=== PATIENT | female | born 1960 | race Caucasian/White ===

== ENCOUNTER 2021-07-07 12:31 | Emergency (ER) | payer MEDICAID, SELFPAY ==
[2021-07-07 13:20] VITALS: BP 171/56; PULSE 62; RESP 16; TEMP 36.7; O2SAT 100; BMI 33.9
--- NOTE | 2021-07-07 13:50 | HMH.EDUTC ---
[facility] [place] Clinical Impression: Sinusitis Qualifiers: Sinusitis location: unspecified location Chronicity: acute Recurrence: non-recurrent Qualified Code(s): J01.90 - Acute sinusitis, unspecified Disposition: Home, Self-Care Condition on Discharge: Good Instructions: Sinusitis, DI for Sinusitis Additional Instructions: Drink plenty of fluids. Take tylenol or ibuprofen for pain or fever. Take the medications as directed. Follow up with your regular doctor. GO TO THE ER FOR ANY WORSENING SYMPTOMS Quarantine until you know the results of your covid-19 test. If it is positive, the health department should call you and give you further instructions about your length of Quarantine and other things. Notify your school or workplace of your results and follow their instructions regarding return to work/school. Follow up with your primary care physician regarding your elevated blood pressure. Prescriptions: predniSONE [Prednisone 20mg Tab] 20 mg PO BID 4 Days #8 tab Transmission Status: Received by [employer] #[id number] Benzonatate [Tessalon Perle 100mg Cap] 100 mg PO TIDP PRN #30 cap PRN Reason: Cough Transmission Status: Received by [employer] #[id number] Azithromycin [Z-Tay 250mg Tab*] 250 mg PO UD DOSE PK #6 tab Transmission Status: Received by [employer] #[id number] Referrals: Austen Fournier [Primary Care Provider] - Forms: Work/School Release Time of Disposition: 13:55 Medical Decision Making - Medical Records Medical records reviewed: No: I reviewed the patient's medical records. - Shayne Inquiry Pt receiving controlled substance: No Vital Signs: 07/07/21 13:20 07/07/21 13:58 Temperature 98.0 F 98.3 F Temperature Source Oral Oral Pulse Rate 60 Pulse Rate [Right] 62 Respiratory Rate 16 16 Blood Pressure 164/70 H Blood Pressure [Right Arm] 171/56 H Blood Pressure Mean [Right Arm] 94 Blood Pressure Source Automatic Cuff Blood Pressure Source [Right Arm] Automatic Cuff Blood Pressure Position Sitting Blood Pressure Position [Right Arm] Sitting 02 Sat by Pulse Oximetry 100 Oxygen Delivery Method Room Air Room Air [facility] [place] - General Stated complaint: head/nasal congestion Time Seen by Provider: 07/07/21 13:50 Mode of Arrival: Ambulatory Source of Information: Patient Limitations: No Limitations Description of Symptoms (Recalled from Triage Doc. by RN): Pt thinks she has a sinus infection that started last week and has gotten worse HEENT Symptoms (Recalled from RN notes): No Resp Symptoms (Recalled from RN notes): No Skin Symptoms (Recalled from RN notes): No MS Symptoms (Recalled from RN notes): No Functional Status (Recalled from RN notes): na - History of Present Illness Provider Complaint: She states that for the past 4 days she has had sinus congestion, sinus drainage, scratchy throat and a cough. She denies any known covid-19 exposure. - Related Data Previous Rx's Medication Instructions Recorded Azithromycin [Z-Tay 250mg Tab*] 250 mg PO UD DOSE PK #6 tab 07/07/21 Benzonatate [Tessalon Perle 100mg 100 mg PO TIDP PRN #30 cap 07/07/21 Cap] predniSONE [Prednisone 20mg 20 mg PO BID 4 Days #8 tab 07/07/21 Tab] Allergies Allergy/AdvReac Type Severity Reaction Status Date / Time Penicillins Allergy Mild Verified 07/07/21 13:23 Sulfa (Sulfonamide Allergy Mild Verified 07/07/21 13:23 Antibiotics) - Worker's Comp Is this a Worker's Comp case?: No [facility] History - Hepatitis A Screen Drug use history?: No High risk sexual behaviors?: No History of sexually transmitted infection?: No Currently employed?: No Childcare worker?: No Do you have indoor plumbing?: Yes Do you have electricity?: Yes Attestation statement:: This patient has been screened for Hepatitis A risk factors. I have reviewed the patient's past medical history: Yes ROS Obtained: Yes All systems reviewed & no additional complaints - Cons
[2021-07-07 13:58] VITALS: BP 164/70; PULSE 60; RESP 16; TEMP 36.8; O2SAT 98
== END 2021-07-07 13:59 | disposition home or self-care (01) ==
PROVIDERS: Emergency Provider Nurse Practitioner Family; PCP Family Medicine
DX: J01.90 Acute sinusitis, unspecified (principal); Z20.822 Contact with and (suspected) exposure to COVID-19
CPT/HCPCS: 99202; C9803; G0463; U0003; U0005

== ENCOUNTER 2021-12-12 17:47 | Emergency (ER) | payer OTHER, SELFPAY ==
[2021-12-12 18:52] VITALS: BP 147/75; PULSE 68; RESP 16; TEMP 36.9; O2SAT 98; BMI 33.3
--- NOTE | 2021-12-12 18:56 | HMH.EDUTC ---
[facility] [place] Clinical Impression: Sinusitis Qualifiers: Sinusitis location: unspecified location Chronicity: acute Recurrence: non-recurrent Qualified Code(s): J01.90 - Acute sinusitis, unspecified Disposition: Home, Self-Care Condition on Discharge: Good Instructions: DI for Sinusitis Additional Instructions: Drink plenty of fluids. Take tylenol for pain or fever. Take the medications as directed. Follow up with your regular doctor. GO TO THE ER FOR ANY WORSENING SYMPTOMS Prescriptions: Benzonatate [Benzonatate 100mg cap] 100 mg PO TIDP PRN #30 cap PRN Reason: Cough Transmission Status: Received by [facility] #[id number] methylPREDNISolone [Medrol] 4 mg PO DIRECTED 6 Days #21 packet Transmission Status: Received by [employer] #[id number] guaiFENesin [Mucinex 600mg tablet] 1 - 2 tab PO BIDP PRN #30 tab PRN Reason: Congestion Transmission Status: Received by [facility] #[id number] Azithromycin [Z-Tay 250mg Tab*] 250 mg PO UD DOSE PK #6 tab Transmission Status: Received by [employer] #[id number] Referrals: Gilda Jorge APRN [Primary Care Provider] - Forms: Work/School Release Time of Disposition: 20:00 Medical Decision Making - Medical Records Medical records reviewed: No: I reviewed the patient's medical records. - Shayne Inquiry Pt receiving controlled substance: No Vital Signs: 12/12/21 18:52 12/12/21 20:20 Temperature 98.4 F 98.4 F Temperature Source Oral Pulse Rate 68 Pulse Rate [Left] 68 Respiratory Rate 16 16 Blood Pressure 147/75 H Blood Pressure [Right Arm] 147/75 H Blood Pressure Mean [Right Arm] 99 02 Sat by Pulse Oximetry 98 [facility] [place] - General Stated complaint: possible sinus infection Time Seen by Provider: 12/12/21 18:56 Mode of Arrival: Ambulatory Source of Information: Patient Limitations: No Limitations Description of Symptoms (Recalled from Triage Doc. by RN): pt c/o sinus pain/pressure and a dry cough. x1 wk HEENT Symptoms (Recalled from RN notes): Yes Resp Symptoms (Recalled from RN notes): Yes Skin Symptoms (Recalled from RN notes): No MS Symptoms (Recalled from RN notes): No Functional Status (Recalled from RN notes): wnl - History of Present Illness Provider Complaint: c/o sinus pressure for the past 1 week. - Related Data Previous Rx's Medication Instructions Recorded Azithromycin [Z-Tay 250mg Tab*] 250 mg PO UD DOSE PK #6 tab 07/07/21 Benzonatate [Tessalon Perle 100mg 100 mg PO TIDP PRN #30 cap 07/07/21 Cap] predniSONE [Prednisone 20mg 20 mg PO BID 4 Days #8 tab 07/07/21 Tab] Azithromycin [Z-Tay 250mg Tab*] 250 mg PO UD DOSE PK #6 tab 12/12/21 Benzonatate [Benzonatate 100mg 100 mg PO TIDP PRN #30 cap 12/12/21 cap] guaiFENesin [Mucinex 600mg tablet] 1 - 2 tab PO BIDP PRN #30 tab 12/12/21 methylPREDNISolone [Medrol] 4 mg PO DIRECTED 6 Days #21 12/12/21 packet Allergies Allergy/AdvReac Type Severity Reaction Status Date / Time Penicillins Allergy Mild Verified 07/07/21 13:23 Sulfa (Sulfonamide Allergy Mild Verified 07/07/21 13:23 Antibiotics) steroids Allergy Uncoded 12/12/21 18:58 - Worker's Comp Is this a Worker's Comp case?: No [facility] History - Hepatitis A Screen Drug use history?: No High risk sexual behaviors?: No History of sexually transmitted infection?: No Currently employed?: No Childcare worker?: No Do you have indoor plumbing?: Yes Do you have electricity?: Yes Attestation statement:: This patient has been screened for Hepatitis A risk factors. I have reviewed the patient's past medical history: Yes ROS Obtained: Yes All systems reviewed & no additional complaints - Constitutional Constitutional: Reports as per HPI - Eyes Eyes: Denies eye discharge - ENT Ears, Nose, Mouth, and Throat: Reports as per HPI - Cardiovascular Cardiovascular: Denies chest pain - Respiratory Respiratory: Denies chest congestion Physical Exam
[2021-12-12 20:20] VITALS: BP 147/75; PULSE 68; RESP 16; TEMP 36.9
== END 2021-12-12 20:21 | disposition home or self-care (01) ==
PROVIDERS: Emergency Provider Nurse Practitioner Family; PCP Nurse Practitioner Family
DX: J01.90 Acute sinusitis, unspecified (principal)
CPT/HCPCS: 99202; C9803; G0463; U0003; U0005

== ENCOUNTER 2022-09-14 12:58 | Emergency (ER) | payer OTHER, MEDICARE, SELFPAY ==
--- NOTE | 2022-09-14 14:56 | EXP.UTC ---
Discharge Plan Disposition Patient Disposition: Home, Self-Care Condition: Good Prescriptions Prescriptions: New azithromycin [Zithromax] 250 mg tablet 250 mg PO UD DOSE PK Qty: 6 0RF Rx Instructions: Take two (2) tablets today, then one (1) tablet days #2 thru #5 benzonatate [benzonatate] 100 mg capsule 100 mg PO TIDP PRN (Reason: Cough) Qty: 30 0RF No Action azithromycin 250 MG tablet 250 mg PO UD DOSE PK Qty: 6 0RF Rx Instructions: Take two (2) tablets today, then one (1) tablet days #2 thru #5 prednisone 20 MG tablet 20 mg PO BID 4 Days Qty: 8 0RF benzonatate 100 MG capsule 100 mg PO TIDP PRN (Reason: Cough) Qty: 30 0RF azithromycin 250 MG tablet 250 mg PO UD DOSE PK Qty: 6 0RF Rx Instructions: Take two (2) tablets today, then one (1) tablet days #2 thru #5 benzonatate 100 MG capsule 100 mg PO TIDP PRN (Reason: Cough) Qty: 30 0RF methylprednisolone 4 MG tablets,dose pack 4 mg PO DIRECTED 6 Days Qty: 21 0RF guaifenesin 600 MG tablet extended release 12hr 1 - 2 tab PO BIDP PRN (Reason: Congestion) Qty: 30 0RF Referrals Follow up/Referrals: Erik Vigil MD [Primary Care Provider] - See instructions Activity Restrictions/Add. Instructions Additional Instructions/Restrictions: Drink plenty of fluids. Take tylenol or ibuprofen for pain or fever. Take the medications as directed. Follow up with your regular doctor. GO TO THE ER FOR ANY WORSENING SYMPTOMS Clinical Impressions Clinical Impression: Sinusitis Stand Alone Forms Stand Alone Forms: Work/School Release Instructions Patient Instructions: Sinusitis, DI for Sinusitis Discharge ED Provider: Corby Anderson [facility] [place] General Stated complaint: Congestion Time Seen by Provider: 09/14/22 14:56 History of Present Illness Provider Complaint: She states that for the past 1 week she has had sinus congestion and chest congestion. She states that she gets sick every fall with these same symptoms. She states that she has a sinus infection. She refuses any covid-19 or viral testing today. Related Data Previous Rx's Medication Instructions Recorded azithromycin 250 mg tablet 250 mg PO UD DOSE PK #6 tabs 07/07/21 benzonatate 100 mg capsule 100 mg PO TIDP PRN Cough #30 caps 07/07/21 prednisone 20 mg tablet 20 mg PO BID 4 days #8 tabs 07/07/21 azithromycin 250 mg tablet 250 mg PO UD DOSE PK #6 tabs 12/12/21 benzonatate 100 mg capsule 100 mg PO TIDP PRN Cough #30 caps 12/12/21 guaifenesin 600 mg tablet, 1 - 2 tab PO BIDP PRN Congestion 12/12/21 extended release 12 hr #30 tabs methylprednisolone 4 mg tablets in 4 mg PO DIRECTED 6 days #21 12/12/21 a dose pack packets azithromycin 250 mg tablet 250 mg PO UD DOSE PK #6 tabs 09/14/22 (Zithromax) benzonatate 100 mg capsule 100 mg PO TIDP PRN Cough #30 caps 09/14/22 Allergies Allergy/AdvReac Type Severity Reaction Status Date / Time Penicillins Allergy Mild Verified 09/14/22 15:05 Sulfa (Sulfonamide Allergy Mild Verified 09/14/22 15:05 Antibiotics) codeine Allergy Verified 09/14/22 15:05 steroids Allergy Uncoded 12/12/21 18:58 [facility] Social History Smoking Status: Never smoker alcohol intake: never current occupational status: employed Travel in the last 8 weeks: None ROS Obtained: Yes All systems reviewed & no additional complaints except as documented Constitutional Constitutional: Reports as per HPI, Denies chills and Denies fever(s) Eyes Eyes: Denies eye discharge ENT Ears, Nose, Mouth, and Throat: Reports as per HPI Cardiovascular Cardiovascular: Denies chest pain Respiratory Respiratory: Denies shortness of breath, Reports chest congestion, Reports cough, Denies stridor and Denies wheezing Gastrointestinal Gastrointestingal: Reports nausea; Denies abdominal pain, constipation, cramping, diarrhea or vomiting Musculoskeletal Mu
[2022-09-14 15:00] VITALS: BP 159/50; PULSE 65; RESP 18; TEMP 36.7; O2SAT 97; BMI 32.1
[2022-09-14 15:41] VITALS: BP 159/50; PULSE 65; RESP 18; TEMP 36.7
== END 2022-09-14 15:46 | disposition home or self-care (01) ==
PROVIDERS: Emergency Provider Nurse Practitioner Family; PCP Emergency Medicine
DX: J32.9 Chronic sinusitis, unspecified (principal)
CPT/HCPCS: 96372; 99212; G0463